=== PATIENT | male | born 1950 | race Caucasian/White ===

== ENCOUNTER 2016-12-28 14:39 | Inpatient (IN) | payer OTHER ==
[2016-12-28] MEDS ORDERED: MORPHINE SULFATE INJ 2 MG IVP PRN (15:08)
[2016-12-28 16:24] LABS: BASOPHILS # (AUTO) 0.2 X10^3/uL (0.0-0.1); BASOPHILS % (AUTO) 2.3 % (0.2-1.0); EOSINOPHILS # (AUTO) 0.1 x10^3/uL (0.0-0.2); EOSINOPHILS % (AUTO) 1.1 % (0.9-2.9); HEMOGLOBIN 14.6 g/dL (13.5-18.0); LYMPHOCYTES # (AUTO) 2.4 X10^3/uL (1.3-2.9); LYMPHOCYTES % (AUTO) 26.4 % (21.0-51.0); MEAN CORPUSCULAR HEMOGLOBIN 35.2 pg (27.0-34.0); MEAN CORPUSCULAR HGB CONC 33.2 g/dL (33.0-35.0); MONOCYTES % (AUTO) 11.5 % (0.0-13.0); NEUTROPHILS # (AUTO) 5.3 x10^3/uL (2.2-4.8); NEUTROPHILS % (AUTO) 58.7 % (42.0-75.0); PLATELET COUNT 305 X10^3/uL (150.0-450.0); RED BLOOD COUNT 4.15 X10^6/uL (4.7-6.0); RED CELL DISTRIBUTION WIDTH 15.4 % (11.6-16.5)
[2016-12-28 17:01] LABS: ALBUMIN 2.9 g/dL (3.4-5.0); CALCIUM 9.5 mg/dL (8.5-10.1); CARBON DIOXIDE 26.9 mmol/L (21-32); COR CA(FOR HYPOALB) 10.4 mg/dL (8.5-10.1); CREATININE 2.46 mg/dL (0.70-1.30); MAGNESIUM 1.4 mg/dL (1.7-2.9); TOTAL PROTEIN 6.7 g/dL (6.4-8.2)
[2016-12-28 17:06] LABS: PLATELET MORPHOLOGY COMMENT NORMAL (NORMAL)
[2016-12-28 17:18] VITALS: BMI 38.0
--- NOTE | 2016-12-28 18:27 | DR.H&P ---
H&P - History & Physical for Day of: H&P Date: 12/28/16 - Chief Complaint Chief Complaint: WEAKNESS, NEAR SYNCOPE, LOW BP, BACK PAIN - Allergies Allergies/Adverse Reactions: Allergies Allergy/AdvReac Type Severity Reaction Status Date / Time Acetaminophen [From Vicodin] Allergy Verified 06/24/15 19:22 Hydrocodone [From Vicodin] Allergy Verified 06/24/15 19:22 Statins Allergy Verified 06/24/15 19:22 - History of Present Illness History of Present Illness: 66 WM DIRECT ADMIT FROM DR CRISTINA OFFICE AFTER PRESENTING WITH CO NEAR SYNCOPE AND HYPOTENSIVE EPISODE EARLIER TODAY WHILE AT WOUND CARE CLINIC. PT REFUSED TO REPORT TO NEAREST [facility]OSP[facility] AT [facility] AT THAT TIME. PT DROVE BY PRIVATE VEHICLE TO THE HOSPITAL. HE FEELS SLIGHT IMPROVEMENT BY STILL WEAK. PT HAS FALL 2 WEEKS AGO WITH LOWER BACK INJURY, LARGE HEMATOMA TO LEFT LOWER BACK. PT HAS MRI SET UP WITH DR LOPEZ IN [place] ON MONDAY. PT IS ON ELIQUIS DUE TO SEVERE PAD. PT HAS HX DM, HTN, CAD, PAD, OA, CRF. PLAN TO ADMIT FOR CARDIAC MONITORING, CT ABD PELVIS EVLAUATE HEMATOMA, L SPINE CT. PAIN CONTROL AND BP MANAGEMENT - Past Medical History Past Medical History: Anemia, Anxiety, Arthritis, Coronary Artery Disease, Diabetes, GERD, Hypertension, Renal Disease Additional Medical History: PAD. ASSISTED COUMADIN THERAPY - Past Surgical History Surgical History: Angioplasty/Stents, CABG/Valve Surgery, Cholecystectomy, Other - Family History Family Medical History: CO, Hypertension - Social History Does patient currently use any type of tobacco product: No Have you used tobacco products in the last 12 months: No Type of Tobacco Use: None Alcohol Use: Occasionally Drug Use: None - Medications Home Medications: Apixaban [Eliquis] 1 tab PO BID 12/28/16 [History Confirmed 12/28/16] Azelastine HCl 1 spray STANISLAW DAILY 12/28/16 [History Confirmed 12/28/16] Cholecalciferol [Vitamin D3] 1 tab PO .2 TIMES WEEK 12/28/16 [History Confirmed 12/28/16] Folic Acid [FOLIC ACID TAB 1 MG *] 1 tab PO DAILY 12/28/16 [History Confirmed ] Levocetirizine Dihydrochloride [Levocetirizine Dihydrochl] 1 tab PO DAILY [History Confirmed 12/28/16] Nystatin (Topical) [Nystatin] 1 dose TD QID 12/28/16 [History Confirmed 12/28/16 ] Tramadol HCl 1 tab PO QID PRN 12/28/16 [History Confirmed 12/28/16] - Review of Systems Constitutional: Weakness Eyes: No Symptoms Reported ENT: No Symptoms Reported Respiratory: No Symptoms Reported Cardiovascular: Light Headedness Gastrointestinal: No Symptoms Reported Genitourinary: No Symptoms Reported Musculoskeletal: Back Pain Skin: Ecchymosis (HEMATOMA TO LOWER BACK, MULTIPLE SCATTERED BRUISES TO FA'S) - Physical Exam Vital Signs: Pulse Rate [Left Radial] 92 Respiratory Rate 15 Blood Pressure [Left Arm] 80/36 Blood Pressure [Right Arm] 146/66 Blood Pressure 120/69 O2 Sat by Pulse Oximetry 90 Oriented: Normal Eyes: Normal Ear: Normal Nose: Normal Throat: Normal Respiratory: RLL Diminished, LLL Diminished Cardiovascular: Irregular : Normal Auscultation: Bowel Sounds: Normal Palpation: Normal Tenderness: Normal Skin: Wound (LEFT UPPER ARM, CLEAN DRY DRESSING INTACT), Bruising, Ecchymosis Musculoskeletal: Back:Lumbar, Pulse Deficit (WEAK LOWER EXTREMITY PULSES BILAT ( HX PAD)) Psychiatric: Anxiety Affect: Anxious Speech Pattern: Clear, Appropriate - Assessment/Plan (1) Near syncope Status: Acute Plan: ADMIT ICU, CARDIAC MONIOTRING, SERIAL CE'S \LABS CBC CMP. CT ABDPELVIS. L SPINE CT, PAIN CONTROL. IV HYDRATION, HYPOTENSIVE TREATMENT WITH IV FLUIDS, CONTINUOUS MONITORING (2) Hypotension Qualifiers: Hypotension type: H Trimester: T Status: Acute Plan: SEE ABOVE (3) Diabetes mellitus, type 2 Qualifiers: Diabetes mellitus complication status: D Diabetes mellitus complication detail: D Diabetic retinopathy severity: D Proliferative retinopathy type: P Diabetes mellitus macular edema: D Diabetes mellitus residential insulin use : D Laterality: L Chronic kidney disease stage: C Status: Chronic (4) GERD (gastroesophageal reflux disease) Qualifiers: Esophagitis presence: E Status: Chronic (5) PAD (peripheral artery disease) Status: Chronic
[2016-12-28] MEDS ORDERED: NS 1000 ML 1,000 ML IV ONE (18:38)
[2016-12-28] MEDS: NS 1000 ML 1,000 ML IV SCH ×2 (20:56→20:57)
[2016-12-28 22:10] LABS: CREATINE KINASE 33 Units/L (39-308); CREATINE KINASE MB < 1.0 ng/mL (0-4.0); TROPONIN I 0.15 ng/mL (0-1.5)
--- NOTE | 2016-12-28 22:52 | RAD ---
HISTORY: Syncope Study: Single view chest Comparison: None Findings: Single portable view is submitted. Sternotomy changes are noted. Lung volumes are reduced. No airspa ce disease, effusion or pneumothorax identified. The cardiac and mediastinal contours are within nor mal limits. The soft tissues are unremarkable. IMPRESSION: 1. Negative portable chest radiograph. Reported By:
[2016-12-29 05:28] LABS: BASOPHILS % (AUTO) 0.4 % (0.2-1.0); EOSINOPHILS # (AUTO) 0.1 x10^3/uL (0.0-0.2); EOSINOPHILS % (AUTO) 1.9 % (0.9-2.9); HEMATOCRIT 41.1 % (42.0-54.0); HEMOGLOBIN 13.6 g/dL (13.5-18.0); LYMPHOCYTES # (AUTO) 1.9 X10^3/uL (1.3-2.9); LYMPHOCYTES % (AUTO) 30.2 % (21.0-51.0); MEAN CORPUSCULAR HEMOGLOBIN 35.4 pg (27.0-34.0); MEAN CORPUSCULAR HGB CONC 33.1 g/dL (33.0-35.0); MEAN CORPUSCULAR VOLUME 106.8 fL (80.0-100.0); MEAN PLATELET VOLUME 9.3 fL (7.4-11.0); MONOCYTES # (AUTO) 0.7 x10^3/uL (0.3-0.8); MONOCYTES % (AUTO) 11.7 % (0.0-13.0); NEUTROPHILS # (AUTO) 3.4 x10^3/uL (2.2-4.8); NEUTROPHILS % (AUTO) 55.8 % (42.0-75.0); PLATELET COUNT 254 X10^3/uL (150.0-450.0); RED BLOOD COUNT 3.85 X10^6/uL (4.7-6.0); RED CELL DISTRIBUTION WIDTH 15.5 % (11.6-16.5); WHITE BLOOD COUNT 6.2 X10^3/uL (3.6-10.0)
[2016-12-29] MEDS: NS 1000 ML 1,000 ML IV SCH ×3 (05:45→14:02)
[2016-12-29 06:04] LABS: PLATELET MORPHOLOGY COMMENT NORMAL (NORMAL)
[2016-12-29 06:16] LABS: ALANINE AMINOTRANSFERASE 38 Units/L (12-78); ALBUMIN 2.7 g/dL (3.4-5.0); ALKALINE PHOSPHATASE 161 Units/L (46-116); ASPARTATE AMINO TRANSFERASE 24 Units/L (15-37); BLOOD UREA NITROGEN 28 mg/dL (7-18); CALCIUM 8.9 mg/dL (8.5-10.1); CARBON DIOXIDE 25.1 mmol/L (21-32); CHLORIDE 109 mmol/L (98-107); CKMB % 2.7 % (<4); COR CA(FOR HYPOALB) 9.9 mg/dL (8.5-10.1); CREATINE KINASE 37 Units/L (39-308); CREATINE KINASE MB < 1.0 ng/mL (0-4.0); CREATININE 1.95 mg/dL (0.70-1.30); GLUCOSE 97 mg/dL (65-99); SODIUM 144 mmol/L (136-145); TOTAL PROTEIN 6.3 g/dL (6.4-8.2); TROPONIN I 0.16 ng/mL (0-1.5); eGFR BLACK RACES 44 (>60); eGFR NON BLACK RACES 37 (>60)
[2016-12-29] MEDS ORDERED: [UNRECOGNIZED DRUG - OTHER] PO PRN (08:49)
[2016-12-29] MEDS ORDERED: PATIENT'S HOME MEDICATION RESPIRATORY (Apixaban [Eliquis] 1 TAB) PO SCH (09:00)
[2016-12-29] MEDS ORDERED: DOXAZOSIN MESYLATE PO SCH (09:00)
[2016-12-29] MEDS: XANAX PO SCH (10:09)
[2016-12-29] MEDS: ZETIA TAB 10 MG PO SCH (10:10)
[2016-12-29] MEDS: PERCOCET TAB 5/325 MG PO PRN ×2 (10:10→23:00)
[2016-12-29] MEDS: ELIQUIS PO SCH ×2 (10:11→22:57)
[2016-12-29] MEDS: FOLIC ACID TAB 1 MG PO SCH (10:11)
--- NOTE | 2016-12-29 10:21 | CT ---
HISTORY: Left flank hematoma Study: CT abdomen pelvis without contrast Comparison: None Technique: Axial non contrast images with coronal and sagittal reformats. Dose reduction procedures were used with MA/kv adjusted for body size. The examination is limited due to the lack of intraveno us and oral contrast. Findings: The right lung base is clear. There is a large area of dense consolidation abutting the posterior pl eura in the superior segment of the left lower lobe. This could represent pneumonia or atelectasis. Underlying neoplasm cannot be excluded and follow up until complete resolution is recommended. It is of note that this was not visible on the recent AP chest x-ray due to its posterior location. Follo w up should be with PA and lateral chest x-ray. CT followup may be required. The liver, spleen, adre nal glands, and pancreas are within normal limits to the limitations of an unenhanced examination. T he patient is status post cholecystectomy. The kidneys are unobstructed and without stones. No urete ral calculi are identified. Calcific atherosclerotic changes present in the abdominal aorta. Aneurys mal dilatation of the distal abdominal aorta demonstrates maximum AP diameter 4.17 centimeters and m aximum transverse diameter 4.56 centimeters. The aneurysm extends over the distal 5.37 centimeters o f the infrarenal abdominal aorta and extends into the left common iliac artery which demonstrates fu siform dilatation having a maximum diameter of 2.87 centimeters. No intraperitoneal or retroperitone al lymphadenopathy is identified. Examination of the pelvis demonstrated no evidence for pelvic mass es, pelvic fluid, or pelvic lymphadenopathy. Compression fractures of L1 and L5 are identified the L 1 fracture is new since March 05, 2016. The L5 fracture has progressed since that time. There is subt le subcutaneous soft tissue stranding in the left flank possibly contusive in origin. No hematoma is identified. IMPRESSION: Subtle subcutaneous soft tissue stranding in the left flank suggestive of contusion in this clinical setting. No hematoma is identified. Fusiform infrarenal abdominal aortic aneurysm extending over a distance of 5.37 centimeters and demo nstrating a maximum diameter of 4. 7 centimeters. Left common iliac artery aneurysm maximum diameter 2.87 centimeters Dense consolidation in the superior segment of the left lower lobe which could represent pneumonia, atelectasis and pneumonia, however underlying neoplasm cannot be excluded and follow up until comple te resolution is recommended. See discussion above with reference to the of follow up. Reported By:
--- NOTE | 2016-12-29 10:30 | CT ---
HISTORY: Injury, fall, low back pain Study: CT lumbar spine without contrast Comparison: Plain films February 24, 2016 Technique: Axial non contrast images with coronal and sagittal reformats. Dose reduction procedures were used with MA/kv adjusted for body size. Findings: the bones are osteopenic. The alignment is normal. There is a compression fracture of L1 new when c ompared with the plain films February 24, 2016. There is a compression fracture of L5 progressive when co mpared with the prior plain films. The remainder the vertebral bodies are of average height. The ped icles, spinous processes, and posterior elements are intact. The visualized SI joints and sacrum are intact. The disc levels are evaluated as follows: T12-L1 level: no evidence for compressive disc disease. The neural foramina are patent. The joints are normal. L1-2 level: No evidence for compressive disc disease. The neural foramina are patent. The joints are normal. L2-3 level: No evidence for compressive disc disease. The neural foramina are patent. Bilateral face t arthropathy is present. L3-4 level: Broad-based disc protrusion effaces the thecal sac and contributes to minimal lateral re cess narrowing bilaterally. Bilateral facet arthropathy is present. L4-5 level: There is a central disc protrusion which effaces the thecal sac. There is also broad-bas ed disc bulging which contributes along with pedicular shortening and bilateral facet arthropathy to lateral recess and foraminal narrowing bilaterally. L5-S1 level: Mild broad-based disc bulging contributes along with facet arthropathy to mild to moder ate lateral recess and foraminal narrowing bilaterally. IMPRESSION: As above Reported By:
[2016-12-29] MEDS ORDERED: SALINE 3% 15 ML NEB TX NEB ONE (13:33)
--- NOTE | 2016-12-29 13:34 | PCM.PROG ---
Progress Note - Progress Note for Day of Date: 12/29/16 - Subjective Subjective: 66 WM ADMITTED ON 12/28/2016 AFTER NEAR SYNCOPE AND HYPOTENSION. PT EKG REVEALED AFIB, RATE CONTROLLED. PT EXPERIENCED A FALL 2 WEEKS AGO WITH NEW ONSET LBP AND HEMATOMA TO LEFT FLANK. CT ABD PELVIS REVEALED SOFT TISSUE INJURY AND LSPINE COMPRESSION FRACTURES. PT HAS BEEN PREVIOUSLY TREATED BY BONE AND JOINT INST. PT CT LUNG BASES REVEALED PNEUMONIA, START PNEUMONIA PROTOCOL TODAY. CONTINUE IV HYDRATION AND PAIN CONTROL, REPEAT AM LABS AND CXR - Past Medical Family Social History Past Med/Fam/Surg Hx: No changes since H&P Allergies: Allergies Acetaminophen [From Vicodin] Allergy (Verified 06/24/15 19:22) Hydrocodone [From Vicodin] Allergy (Verified 06/24/15 19:22) Statins Allergy (Verified 06/24/15:) - Review of Systems ROS: No change since H&P - Vital Signs and I&O's Vital Signs: Temperature 98.5 F Pulse Rate [Left Radial] 74 Respiratory Rate 20 Blood Pressure [Left Arm] 113/93 Blood Pressure [Right Arm] 146/66 Blood Pressure 120/69 O2 Sat by Pulse Oximetry 99 Intake and Output: Intake & Output 12/27/16 12/28/16 12/29/16 12/30/16 11:59 11:59 11:59 11:59 Intake Total 1940 Output Total 200 Balance 1740 - Physical Exam Oriented: Normal Eyes: Normal Ear: Normal Nose: Normal Throat: Normal Respiratory: Diminished (BILATERAL LOWER LUNG DIMINSHED BS) Cardiovascular: Irregular : Normal Auscultation: Bowel Sounds: Normal Tenderness: Normal Skin: Wound (LEFT UPPER ARM, CLEAN DRY DRESSING INTACT), Bruising, Ecchymosis Musculoskeletal: Back:Lumbar, Pulse Deficit (WEAK LOWER EXTREMITY PULSES BILAT ( HX PAD)) Psychiatric: Anxiety Affect: Anxious Speech Pattern: Clear - Laboratory and Diagnostics Result Diagrams: 12/29/16 03:45 12/29/16 03:45 Labs: Laboratory WBC 6.2 X10^3/uL (3.6-10.0) 12/29/16 03:45 RBC 3.85 X10^6/uL (4.7-6.0) L 12/29/16 03:45 Hgb 13.6 g/dL (13.5-18.0) 12/29/16 03:45 Hct 41.1 % (42.0-54.0) L 12/29/16 03:45 MCV 106.8 fL (80.0-100.0) H 12/29/16 03:45 MCH 35.4 pg (27.0-34.0) H 12/29/16 03:45 MCHC 33.1 g/dL (33.0-35.0) 12/29/16 03:45 RDW 15.5 % (11.6-16.5) 12/29/16 03:45 Plt Count 254 X10^3/uL (150.0-450.0) 12/29/16 03:45 Plt Count Comment Adequate (ADEQUATE) 12/29/16 03:45 MPV 9.3 fL (7.4-11.0) 12/29/16 03:45 Neut % 55.8 % (42.0-75.0) 12/29/16 03:45 Lymph % 30.2 % (21.0-51.0) 12/29/16 03:45 [place] % 11.7 % (0.0-13.0) 12/29/16 03:45 Eos % 1.9 % (0.9-2.9) 12/29/16 03:45 Baso % 0.4 % (0.2-1.0) 12/29/16 03:45 Neut # 3.4 x10^3/uL (2.2-4.8) 12/29/16 03:45 Lymph # 1.9 X10^3/uL (1.3-2.9) 12/29/16 03:45 [place] # 0.7 x10^3/uL (0.3-0.8) 12/29/16 03:45 Eos # 0.1 x10^3/uL (0.0-0.2) 12/29/16 03:45 Baso # 0.0 X10^3/uL (0.0-0.1) 12/29/16 03:45 Absolute Nucleated RBC 0.0 /100WBC 12/29/16 03:45 Plt Morphology Comment Normal (NORMAL) 12/29/16 03:45 RBC Morphology Abnormal (NORMAL) 12/29/16 03:45 Macrocytosis 1+ A 12/29/16 03:45 Sodium 144 mmol/L (136-145) 12/29/16 03:45 Corrected Sodium TNP 12/29/16 03:45 Potassium 4.3 mmol/L (3.5-5.1) 12/29/16 03:45 Chloride 109 mmol/L (98-107) H 12/29/16 03:45 Carbon Dioxide 25.1 mmol/L (21-32) 12/29/16 03:45 BUN 28 mg/dL (7-18) H 12/29/16 03:45 Creatinine 1.95 mg/dL (0.70-1.30) H 12/29/16 03:45 Est GFR (MDRD) Af Amer 44 (>60) L 12/29/16 03:45 Est GFR (MDRD) Non-Af 37 (>60) L 12/29/16 03:45 Glucose 97 mg/dL (65-99) 12/29/16 03:45 Calcium 8.9 mg/dL (8.5-10.1) 12/29/16 03:45 Corrected Calcium 9.9 mg/dL (8.5-10.1) 12/29/16 03:45 Magnesium 1.4 mg/dL (1.7-2.9) L 12/28/16 16:05 Total Bilirubin 0.60 mg/dL (0.2-1.0) 12/29/16 03:45 AST 24 Units/L (15-37) 12/29/16 03:45 ALT 38 Units/L (12-78) 12/29/16 03:45 Alkaline Phosphatase 161 Units/L (46-116) H 12/29/16 03:45 Creatine Kinase 37 Units/L (39-308) L 12/29/16 03:45 CK-MB (CK-2) < 1.0 ng/mL (0-4.0) 12/29/16 03:45 CK/CKMB % Calc 2.7 % (<4) 12/29/16 03:45 Troponin I 0.16 ng/mL (0-1.5) 12/29/16 03:45 Total Protein 6.3 g/dL (6.4-8.2) L 12/29/16 03:45 Albumin 2.7 g/dL (3.4-5.0) L 12/29/16 03:45 Globulin 3.6 g/dL (2.5-4.5) 12/29/16 03:45 Albumin/Globulin Ratio 0.8 Ratio (1.1-2.1) L 12/29/16 03:45 - Plan (1) Near syncope Status: Acute Plan: IV HYDRATION, BP MONIOTRING HOLDING LOSARTAN AND HYDRALAZINE. CONTINUE CARDIAC MONITORING. REPEAT AM LABS (2) Hypotension Status: Acute Qualifiers: Hypotension type: H Trimester: T Plan: SEE ABOVE, IMPROVING (3) Diabetes mellitus, type 2 Status: Chronic Qualifiers: Diabetes mellitus complication status: D Diabetes mellitus complication detail: D Diabetic retinopathy severity: D Proliferative retinopathy type: P Diabetes mellitus macular edema: D Diabetes mellitus mcc insulin use : D Laterality: L Chronic kidney disease stage: C Plan: MONITOR, NO PO MEDICATIONS FOR GLUCOSE (4) GERD (gastroesophageal reflux disease) Status: Chronic Qualifiers: Esophagitis presence: E Plan: PPI (5) PAD (peripheral artery disease) Status: Chronic Plan: CONTINUE ELIQUIS (6) Pneumonia Status: Acute Qualifiers: Pneumonia type: P Aspiration pneumonia type: A Laterality: L Lung location: L Plan: PNEUMONIA PROTOCOL, RESP CONSULT. IV ZITHROMAX (7) Lumbar compression fracture Status: Acute Qualifiers: Encounter type: E Fracture type: F Fracture healing: F Plan: PAIN CONTROL, PT (8) Afib Status: Acute Qualifiers: Atrial fibrillation type: A Plan: CARDIAC MONITORING, CONTINUE ELIQUIS. RATE CONTROL
[2016-12-29] MEDS: PROTONIX INJ 40 MG VIAL IVP SCH (14:01)
[2016-12-29] MEDS: NEURONTIN CAP 300 MG PO SCH ×2 (14:02→22:57)
[2016-12-29] MEDS: ZITHROMAX INJ 500 MG VIAL 500 MG in NS 250 ML IV 250 ML IV SCH (14:02)
[2016-12-29 15:43] LABS: BILIRUBIN,URINE NEGATIVE (NEGATIVE); BLOOD/HEMOGLOBIN,URINE NEGATIVE (NEGATIVE); GLUCOSE, URINE NEGATIVE (NEGATIVE); KETONES,URINE NEGATIVE (NEGATIVE); LEUKOCYTE ESTERASE ,URINE NEGATIVE (NEGATIVE); NITRITES,URINE NEGATIVE (NEGATIVE); PROTEIN,URINE NEGATIVE (NEGATIVE); UROBILINOGEN,URINE NORMAL (NORMAL)
[2016-12-29 15:52] LABS: AMORPHOUS SEDIMENT,UR TRACE /HPF (NEGATIVE); APPEARANCE,URINE CLEAR (CLEAR); BACTERIA,URINE TRACE /HPF (NEGATIVE); COLOR,URINE DARK YELLOW (YELLOW); HYALINE CASTS, URINE FEW /LPF (NEGATIVE); RBC,URINE 0-1 /HPF (NEGATIVE); SQUAMOUS EPITHELIAL CELL,UR FEW /HPF (NEGATIVE)
[2016-12-29] MEDS: DUONEB 0.5 MG/3 MG NEB SCH ×2 (16:21→20:35)
[2016-12-30] MEDS: DUONEB 0.5 MG/3 MG NEB SCH ×6 (01:29→22:10)
[2016-12-30 06:19] LABS: BASOPHILS % (AUTO) 0.4 % (0.2-1.0); EOSINOPHILS # (AUTO) 0.1 x10^3/uL (0.0-0.2); EOSINOPHILS % (AUTO) 0.9 % (0.9-2.9); HEMATOCRIT 37.8 % (42.0-54.0); HEMOGLOBIN 12.7 g/dL (13.5-18.0); LYMPHOCYTES # (AUTO) 1.5 X10^3/uL (1.3-2.9); LYMPHOCYTES % (AUTO) 22.8 % (21.0-51.0); MEAN CORPUSCULAR HEMOGLOBIN 35.6 pg (27.0-34.0); MEAN CORPUSCULAR HGB CONC 33.6 g/dL (33.0-35.0); MEAN CORPUSCULAR VOLUME 105.8 fL (80.0-100.0); MEAN PLATELET VOLUME 9.1 fL (7.4-11.0); MONOCYTES # (AUTO) 0.6 x10^3/uL (0.3-0.8); MONOCYTES % (AUTO) 9.2 % (0.0-13.0); NEUTROPHILS # (AUTO) 4.4 x10^3/uL (2.2-4.8); NEUTROPHILS % (AUTO) 66.7 % (42.0-75.0); PLATELET COUNT 228 X10^3/uL (150.0-450.0); RED BLOOD COUNT 3.57 X10^6/uL (4.7-6.0); RED CELL DISTRIBUTION WIDTH 15.1 % (11.6-16.5); WHITE BLOOD COUNT 6.5 X10^3/uL (3.6-10.0)
[2016-12-30] MEDS: NS 1000 ML 1,000 ML IV SCH ×4 (06:42→19:52)
[2016-12-30 06:43] LABS: ALANINE AMINOTRANSFERASE 34 Units/L (12-78); ALBUMIN 2.6 g/dL (3.4-5.0); ALKALINE PHOSPHATASE 162 Units/L (46-116); ASPARTATE AMINO TRANSFERASE 25 Units/L (15-37); BLOOD UREA NITROGEN 21 mg/dL (7-18); CALCIUM 8.6 mg/dL (8.5-10.1); CARBON DIOXIDE 23.1 mmol/L (21-32); CHLORIDE 111 mmol/L (98-107); COR CA(FOR HYPOALB) 9.7 mg/dL (8.5-10.1); CREATININE 1.43 mg/dL (0.70-1.30); GLUCOSE 107 mg/dL (65-99); SODIUM 145 mmol/L (136-145); TOTAL PROTEIN 6.1 g/dL (6.4-8.2); eGFR BLACK RACES > 60 (>60); eGFR NON BLACK RACES 52 (>60)
[2016-12-30] MEDS: NEURONTIN CAP 300 MG PO SCH ×4 (07:10→21:08)
[2016-12-30 07:28] LABS: PLATELET MORPHOLOGY COMMENT NORMAL (NORMAL)
[2016-12-30] MEDS ORDERED: TOBRAMYCIN SULFATE 80 MG in NS 100 ML IV 100 ML IV ONE (09:00)
[2016-12-30] MEDS: ZITHROMAX INJ 500 MG VIAL 500 MG in NS 250 ML IV 250 ML IV SCH (09:48)
[2016-12-30] MEDS: PROTONIX INJ 40 MG VIAL IVP SCH (09:51)
[2016-12-30] MEDS: MILK OF MAGNESIA PO SCH ×2 (09:52→21:09)
[2016-12-30] MEDS: CARDURA PO SCH (09:52)
[2016-12-30] MEDS: XANAX PO SCH (09:53)
[2016-12-30] MEDS: PLAVIX PO SCH (09:53)
[2016-12-30] MEDS: ELIQUIS PO SCH ×2 (09:53→21:09)
[2016-12-30] MEDS: FOLIC ACID TAB 1 MG PO SCH (09:54)
[2016-12-30] MEDS: ZETIA TAB 10 MG PO SCH (09:54)
[2016-12-30] MEDS: ZYLOPRIM PO SCH (10:41)
[2016-12-30] MEDS ORDERED: MAXIPIME 1 GM IV PREMIX 1 GM/50 ML BAG IV SCH (14:00)
[2016-12-30] MEDS: MAXIPIME IV SCH ×2 (14:33→21:10)
[2016-12-30] MEDS: NS IV SCH ×2 (14:33→21:10)
[2016-12-30] MEDS: SPIKE MINIBAG IV SCH ×2 (14:33→21:10)
[2016-12-30] MEDS ORDERED: NEXTERONE IV 360 MG PREMIX* 200 ML IV PRN ×2 (15:28→15:29)
[2016-12-30] MEDS ORDERED: NEXTERONE IV 150 MG PREMIX* 100 ML IV ONE ×2 (15:28→17:00)
[2016-12-30] MEDS ORDERED: HEPARIN SODIUM INJ 5000 UNITS ONE (16:18)
[2016-12-30] MEDS: COLACE CAP 100 MG PO SCH ×2 (21:08)
[2016-12-30] MEDS: PERCOCET TAB 5/325 MG PO PRN (21:09)
[2016-12-30] MEDS: NEXTERONE IV 360 MG PREMIX* 200 ML IV PRN (23:24)
[2016-12-31] MEDS: DUONEB 0.5 MG/3 MG NEB SCH ×6 (01:22→20:49)
[2016-12-31] MEDS: NS 1000 ML 1,000 ML IV SCH ×3 (05:50→22:11)
[2016-12-31] MEDS: SPIKE MINIBAG IV SCH ×3 (05:51→22:00)
[2016-12-31] MEDS: MAXIPIME IV SCH ×3 (05:51→22:00)
[2016-12-31] MEDS: NS IV SCH ×3 (05:51→22:00)
[2016-12-31] MEDS: NEURONTIN CAP 300 MG PO SCH ×3 (05:51→21:58)
[2016-12-31] MEDS: ZETIA TAB 10 MG PO SCH (08:52)
[2016-12-31] MEDS: PROTONIX INJ 40 MG VIAL IVP SCH (08:52)
[2016-12-31] MEDS: ZITHROMAX INJ 500 MG VIAL 500 MG in NS 250 ML IV 250 ML IV SCH (08:52)
[2016-12-31] MEDS: CARDURA PO SCH (08:53)
[2016-12-31] MEDS: XANAX PO SCH (08:53)
[2016-12-31] MEDS: ZYLOPRIM PO SCH (08:53)
[2016-12-31] MEDS: FOLIC ACID TAB 1 MG PO SCH (08:53)
[2016-12-31] MEDS: ELIQUIS PO SCH ×2 (08:53→21:58)
[2016-12-31] MEDS ORDERED: PATIENT'S HOME MEDICATION RESPIRATORY (Oxycodone W/ Acetaminophen [Oxycodone/Acetaminophen PO PRN (08:55)
[2016-12-31] MEDS ORDERED: ULTRAM PO PRN (08:55)
[2016-12-31] MEDS: PLAVIX PO SCH (08:56)
[2016-12-31] MEDS: MILK OF MAGNESIA PO SCH ×2 (08:56→22:10)
[2016-12-31] MEDS ORDERED: PLAVIX PO SCH (09:00)
[2016-12-31] MEDS ORDERED: [UNRECOGNIZED DRUG - OTHER] PO SCH (09:00)
[2016-12-31] MEDS ORDERED: ZYLOPRIM PO SCH (09:00)
[2016-12-31] MEDS ORDERED: [UNRECOGNIZED DRUG - OTHER] NAS SCH (09:00)
[2016-12-31] MEDS ORDERED: VITAMIN D (1.25MG) PO SCH (10:15)
[2016-12-31] MEDS: NEXTERONE IV 360 MG PREMIX* 200 ML IV PRN (11:00)
[2016-12-31] MEDS ORDERED: ASTELIN NASAL SPRAY ENOSTRIL ONE (12:27)
[2016-12-31] MEDS: ASTELIN NASAL SPRAY ENOSTRIL SCH (12:30)
[2016-12-31] MEDS ORDERED: VERSED ONE ×3 (13:38→13:56)
[2016-12-31] MEDS ORDERED: VERSED IVP ONE ×4 (13:46→13:59)
[2016-12-31] MEDS ORDERED: PHENERGAN INJ 25 MG ONE (13:52)
[2016-12-31] MEDS ORDERED: PHENERGAN INJ 25 MG IVP ONE (13:56)
[2016-12-31] MEDS ORDERED: COLCRYS TAB 0.6 MG PO ONE (17:36)
[2016-12-31] MEDS: PERCOCET TAB 5/325 MG PO PRN (21:58)
[2016-12-31] MEDS: COLACE CAP 100 MG PO SCH (22:11)
[2017-01-01] MEDS ORDERED: COLCRYS TAB 0.6 MG PO PRN (00:01)
[2017-01-01] MEDS: DUONEB 0.5 MG/3 MG NEB SCH ×4 (00:53→12:18)
--- NOTE | 2017-01-01 05:19 | RAD ---
Chest AP portable Indication: Syncope weakness. Comparison: December 28, 2016. Findings: There is cardiomegaly. No pneumothorax or effusion seen. No consolidation seen. No severe edema identified. Sternotomy change noted. Impression: Cardiomegaly, similar to the prior. No new acute abnormality otherwise. Reported By:
[2017-01-01] MEDS: NEURONTIN CAP 300 MG PO SCH ×3 (05:20→22:44)
[2017-01-01] MEDS: NS 1000 ML 1,000 ML IV SCH ×4 (05:20→22:45)
[2017-01-01] MEDS: NS IV SCH ×3 (05:20→21:45)
[2017-01-01] MEDS: SPIKE MINIBAG IV SCH ×3 (05:20→21:45)
[2017-01-01] MEDS: MAXIPIME IV SCH ×3 (05:20→21:45)
[2017-01-01 05:41] LABS: BASOPHILS % (AUTO) 0.6 % (0.2-1.0); EOSINOPHILS # (AUTO) 0.2 x10^3/uL (0.0-0.2); EOSINOPHILS % (AUTO) 3.1 % (0.9-2.9); HEMATOCRIT 35.3 % (42.0-54.0); HEMOGLOBIN 11.9 g/dL (13.5-18.0); LYMPHOCYTES # (AUTO) 1.2 X10^3/uL (1.3-2.9); LYMPHOCYTES % (AUTO) 18.9 % (21.0-51.0); MEAN CORPUSCULAR HEMOGLOBIN 35.7 pg (27.0-34.0); MEAN CORPUSCULAR HGB CONC 33.6 g/dL (33.0-35.0); MEAN PLATELET VOLUME 9.3 fL (7.4-11.0); MONOCYTES # (AUTO) 0.8 x10^3/uL (0.3-0.8); MONOCYTES % (AUTO) 12.5 % (0.0-13.0); NEUTROPHILS # (AUTO) 4.1 x10^3/uL (2.2-4.8); NEUTROPHILS % (AUTO) 64.9 % (42.0-75.0); PLATELET COUNT 226 X10^3/uL (150.0-450.0); RED BLOOD COUNT 3.33 X10^6/uL (4.7-6.0); RED CELL DISTRIBUTION WIDTH 15.4 % (11.6-16.5); WHITE BLOOD COUNT 6.3 X10^3/uL (3.6-10.0)
[2017-01-01 06:16] LABS: ALANINE AMINOTRANSFERASE 27 Units/L (12-78); ALBUMIN 2.5 g/dL (3.4-5.0); ALKALINE PHOSPHATASE 145 Units/L (46-116); ASPARTATE AMINO TRANSFERASE 17 Units/L (15-37); BLOOD UREA NITROGEN 14 mg/dL (7-18); CALCIUM 8.5 mg/dL (8.5-10.1); CARBON DIOXIDE 25.8 mmol/L (21-32); CHLORIDE 110 mmol/L (98-107); COR CA(FOR HYPOALB) 9.7 mg/dL (8.5-10.1); CREATININE 1.31 mg/dL (0.70-1.30); GLUCOSE 90 mg/dL (65-99); SODIUM 145 mmol/L (136-145); TOTAL PROTEIN 5.8 g/dL (6.4-8.2); eGFR BLACK RACES > 60 (>60); eGFR NON BLACK RACES 58 (>60)
[2017-01-01 06:33] LABS: PLATELET MORPHOLOGY COMMENT NORMAL (NORMAL)
[2017-01-01] MEDS: ASTELIN NASAL SPRAY ENOSTRIL SCH (09:04)
[2017-01-01] MEDS: CARDURA PO SCH (09:05)
[2017-01-01] MEDS: PROTONIX INJ 40 MG VIAL IVP SCH (09:05)
[2017-01-01] MEDS: PLAVIX PO SCH (09:06)
[2017-01-01] MEDS: ELIQUIS PO SCH ×2 (09:06→21:45)
[2017-01-01] MEDS: FOLIC ACID TAB 1 MG PO SCH (09:06)
[2017-01-01] MEDS: ZYLOPRIM PO SCH (09:06)
[2017-01-01] MEDS: MILK OF MAGNESIA PO SCH ×2 (09:07→22:46)
[2017-01-01] MEDS: XANAX PO SCH (09:07)
[2017-01-01] MEDS: ZETIA TAB 10 MG PO SCH (09:07)
[2017-01-01] MEDS ORDERED: CORDARONE TAB 200 MG PO ONE (15:00)
[2017-01-01] MEDS ORDERED: DUONEB 0.5 MG/3 MG NEB PRN (15:20)
[2017-01-01] MEDS: COLACE CAP 100 MG PO SCH (22:46)
[2017-01-02 05:31] LABS: BASOPHILS % (AUTO) 0.5 % (0.2-1.0); EOSINOPHILS # (AUTO) 0.3 x10^3/uL (0.0-0.2); EOSINOPHILS % (AUTO) 4.6 % (0.9-2.9); HEMOGLOBIN 12.1 g/dL (13.5-18.0); LYMPHOCYTES # (AUTO) 1.4 X10^3/uL (1.3-2.9); LYMPHOCYTES % (AUTO) 22.9 % (21.0-51.0); MEAN CORPUSCULAR HEMOGLOBIN 35.4 pg (27.0-34.0); MEAN CORPUSCULAR HGB CONC 33.5 g/dL (33.0-35.0); MEAN CORPUSCULAR VOLUME 105.6 fL (80.0-100.0); MONOCYTES # (AUTO) 0.7 x10^3/uL (0.3-0.8); MONOCYTES % (AUTO) 12.5 % (0.0-13.0); NEUTROPHILS # (AUTO) 3.5 x10^3/uL (2.2-4.8); NEUTROPHILS % (AUTO) 59.5 % (42.0-75.0); PLATELET COUNT 210 X10^3/uL (150.0-450.0); RED BLOOD COUNT 3.41 X10^6/uL (4.7-6.0); RED CELL DISTRIBUTION WIDTH 15.1 % (11.6-16.5); WHITE BLOOD COUNT 5.9 X10^3/uL (3.6-10.0)
[2017-01-02 05:36] LABS: ALANINE AMINOTRANSFERASE 27 Units/L (12-78); ALBUMIN 2.5 g/dL (3.4-5.0); ALKALINE PHOSPHATASE 151 Units/L (46-116); ASPARTATE AMINO TRANSFERASE 17 Units/L (15-37); BLOOD UREA NITROGEN 12 mg/dL (7-18); CALCIUM 8.7 mg/dL (8.5-10.1); CARBON DIOXIDE 26.3 mmol/L (21-32); CHLORIDE 110 mmol/L (98-107); COR CA(FOR HYPOALB) 9.9 mg/dL (8.5-10.1); CREATININE 1.12 mg/dL (0.70-1.30); GLUCOSE 87 mg/dL (65-99); SODIUM 143 mmol/L (136-145); eGFR BLACK RACES > 60 (>60); eGFR NON BLACK RACES > 60 (>60)
[2017-01-02 06:47] LABS: PLATELET MORPHOLOGY COMMENT NORMAL (NORMAL)
[2017-01-02] MEDS: SPIKE MINIBAG IV SCH ×2 (07:06→15:03)
[2017-01-02] MEDS: NS 1000 ML 1,000 ML IV SCH (07:06)
[2017-01-02] MEDS: MAXIPIME IV SCH ×2 (07:06→15:03)
[2017-01-02] MEDS: NEURONTIN CAP 300 MG PO SCH ×2 (07:06→15:03)
[2017-01-02] MEDS: NS IV SCH ×2 (07:06→15:03)
[2017-01-02] MEDS ORDERED: CORDARONE TAB 200 MG PO SCH (09:00)
[2017-01-02] MEDS: ASTELIN NASAL SPRAY ENOSTRIL SCH ×2 (09:14→09:18)
[2017-01-02] MEDS: ELIQUIS PO SCH (09:15)
[2017-01-02] MEDS: CARDURA PO SCH (09:15)
[2017-01-02] MEDS: FOLIC ACID TAB 1 MG PO SCH (09:16)
[2017-01-02] MEDS: MILK OF MAGNESIA PO SCH (09:17)
[2017-01-02] MEDS: ZYLOPRIM PO SCH (09:17)
[2017-01-02] MEDS: XANAX PO SCH (09:17)
[2017-01-02] MEDS: PROTONIX INJ 40 MG VIAL IVP SCH (09:18)
[2017-01-02] MEDS: ZETIA TAB 10 MG PO SCH (09:19)
[2017-01-02] MEDS: PLAVIX PO SCH (09:21)
[2017-01-02 15:07] VITALS: BP 150/46
== END 2017-01-02 14:45 | disposition home or self-care (01) | DRG 309 ==
LOC: ICU 14:39 → OBSVTOIN 12-29 15:00
PROVIDERS: ADMIT Internal Medicine; ATTEND Internal Medicine
DX: I48.92 Unspecified atrial flutter (principal); E86.1 Hypovolemia; R55 Syncope and collapse; I95.89 Other hypotension; R94.31 Abnormal electrocardiogram [ECG] [EKG]; R53.1 Weakness; M54.89 Other dorsalgia; M54.5 Low back pain; E11.65 Type 2 diabetes mellitus with hyperglycemia; I10 Essential (primary) hypertension; K21.9 Gastro-esophageal reflux disease without esophagitis; I25.10 Atherosclerotic heart disease of native coronary artery without angina pectoris; I73.89 Other specified peripheral vascular diseases; W18.39XA Other fall on same level, initial encounter; I48.91 Unspecified atrial fibrillation; Y92.89 Other specified places as the place of occurrence of the external cause; M48.56XA Collapsed vertebra, not elsewhere classified, lumbar region, initial encounter for fracture; Z79.01 Long term (current) use of anticoagulants; S30.0XXA Contusion of lower back and pelvis, initial encounter
CPT/HCPCS: 36415; 71010; 72131; 74176; 80053; 81001; 82270; 82550; 82553; 83735; 84484; 85025; 87040; 87070; 87205; 93005; 93010; 94640; 99231; A4222; C9113; G0378; J0456; J0692; J1644; J2250; J2550; J3260; J7620

== ENCOUNTER 2017-10-31 15:37 | Inpatient (IN) | payer OTHER ==
[~2017-10-31 15:37] MED LIST: DIPRIVAN VIAL ONE; VERSED ONE
[2017-10-31] MEDS ORDERED: LR 1000 ML IV 1,000 ML IV ONE (16:43)
[2017-10-31 16:44] LABS: BASOPHILS # (AUTO) 0.2 X10^3/uL (0.0-0.1); EOSINOPHILS # (AUTO) 0.1 x10^3/uL (0.0-0.2); EOSINOPHILS % (AUTO) 1.1 % (0.9-2.9); HEMATOCRIT 43.5 % (42.0-54.0); HEMOGLOBIN 15.3 g/dL (13.5-18.0); LYMPHOCYTES # (AUTO) 1.1 X10^3/uL (1.3-2.9); LYMPHOCYTES % (AUTO) 11.2 % (21.0-51.0); MEAN CORPUSCULAR HEMOGLOBIN 37.1 pg (27.0-34.0); MEAN CORPUSCULAR HGB CONC 35.1 g/dL (33.0-35.0); MEAN CORPUSCULAR VOLUME 105.5 fL (80.0-100.0); MONOCYTES # (AUTO) 0.7 x10^3/uL (0.3-0.8); MONOCYTES % (AUTO) 6.8 % (0.0-13.0); NEUTROPHILS % (AUTO) 78.9 % (42.0-75.0); PLATELET COUNT 289 X10^3/uL (150.0-450.0); RED BLOOD COUNT 4.12 X10^6/uL (4.7-6.0); RED CELL DISTRIBUTION WIDTH 15.1 % (11.6-16.5); WHITE BLOOD COUNT 10.1 X10^3/uL (3.6-10.0)
[2017-10-31 17:00] LABS: CALCIUM 8.8 mg/dL (8.5-10.1); CARBON DIOXIDE 30.4 mmol/L (21-32); COR CA(FOR HYPOALB) 9.6 mg/dL (8.5-10.1); CREATININE 2.01 mg/dL (0.70-1.30); TOTAL PROTEIN 7.7 g/dL (6.4-8.2)
[2017-10-31] MEDS: NS 1000 ML 1,000 ML IV SCH (17:06)
[2017-10-31 17:12] LABS: PLATELET MORPHOLOGY COMMENT NORMAL (NORMAL)
[2017-10-31 17:27] VITALS: BMI 39.4
[2017-10-31] MEDS: MORPHINE SULFATE INJ 2 MG INJ IVP PRN (17:30)
[2017-10-31] MEDS: FENTANYL INJ 100 mcg ONE ×2 (17:30→17:36)
[2017-10-31] MEDS: MARCAINE 0.25% INJ ONE ×2 (17:35→17:42)
[2017-10-31] MEDS: XYLOCAINE 1% and EPINEPHRINE 1:100,000 ONE ×2 (17:36→17:42)
--- NOTE | 2017-10-31 17:40 | RAD ---
HISTORY: Preop perirectal abscess Study: Chest AP portable Comparison: 01/01/2017 Findings: The heart is enlarged. No congestive heart failure is noted. The buck are normal. The lung carrero are clear. No pleural effusions are identified. The bony thorax is unremarkable. The patient is status p ost median sternotomy. IMPRESSION: Cardiomegaly without congestive heart failure 2. Lungs clear Reported By:
[2017-10-31] MEDS ORDERED: NS IRRIGATION 1000 ML 1,000 ML IR ONE (17:54)
[2017-10-31] MEDS ORDERED: ZOFRAN INJ 4 MG VIAL IVP PRN (18:06)
--- NOTE | 2017-10-31 18:16 | OR.GENERIC ---
Post-Op Note Generic - Post-Op Note Operative Report: Date of Operation: October 31, 2017 Pre-Operative Diagnosis: Recurrent perianal abscess. Post-Operative Diagnosis: Recurrent perianal abscess. Procedure: Exam under anesthesia with incision and drainage of perianal abscess. Surgeon: Josef Juarez MD Anesthesia: Monitored anesthesia care and local. Specimen: Wound culture. Estimated blood loss: Minimal Complications: None Summary: The patient is a 67 year old male who presented with a recurrent perianal abscess. The patient presented with acute pain. Mr. Angulo is on anticoagulation and antiplatelet therapy. The patient was offered incision and drainage. The risk and benefits of the procedure including difficulty with anesthesia, bleeding, infection, scar formation, delayed healing, as well as recurrence were discussed with the patient. The patient understood these risks and requested the procedure. On October 31, 2017, the patient was brought to the operative theatre. A time out was performed verifying the patient and the procedure. After satisfactory induction of monitored anesthesia care, perianal region was prepped with betadine and draped in the usual fashion. Local anesthetic was infiltrated around the area of induration which was anterior to the anus. A small core of skin was removed sharply. The abscess cavity was entered bluntly. Purulent drainage was noted. A culture was obtained and sent to microbiology. All loculations were disrupted bluntly. The cavity was noted to track to the anus subcutaneously and a small tract was noted to extend lateral to the sphincter muscles. The abscess cavity extended greater than 6 cm. Due to anticoagulation , the decision was made not to further explore the tract at this time. The abscess cavity was copiously irrigated. Bleeding was controlled using electrocautery. Next, the wound was packed with 2 Iodoform. A sterile dressing was placed. The patient was awakened and taken to the recovery room in stable condition. There were no complications. All counts were correct. The patient will be monitored in the hospital for bleeding and pain control.
[2017-10-31] MEDS ORDERED: NS 500 ML IV 500 ML IV ONE (18:24)
[2017-10-31] MEDS ORDERED: ZOSYN IV SCH (19:00)
[2017-10-31] MEDS ORDERED: SPIKE MINIBAG IV SCH (19:00)
[2017-10-31] MEDS ORDERED: NS IV SCH (19:00)
[2017-10-31] MEDS ORDERED: ZOSYN VIAL 3.375 GM 3.375 GM in NS 100 ML IV + SPIKE MINIBAG* 100 ML IV SCH (19:00)
[2017-10-31] MEDS: ZOSYN VIAL 2.25 GM 2.25 GM in NS 100 ML IV + SPIKE MINIBAG* 100 ML IV SCH (19:51)
[2017-10-31] MEDS: PERCOCET TAB 5/325 MG PO PRN (19:57)
[2017-11-01] MEDS: ZOSYN VIAL 2.25 GM 2.25 GM in NS 100 ML IV + SPIKE MINIBAG* 100 ML IV SCH ×2 (03:28→12:39)
[2017-11-01] MEDS: NS 1000 ML 1,000 ML IV SCH ×2 (03:35→06:40)
[2017-11-01 06:12] LABS: BASOPHILS % (AUTO) 0.7 % (0.2-1.0); EOSINOPHILS # (AUTO) 0.2 x10^3/uL (0.0-0.2); EOSINOPHILS % (AUTO) 2.5 % (0.9-2.9); HEMATOCRIT 40.6 % (42.0-54.0); LYMPHOCYTES # (AUTO) 1.6 X10^3/uL (1.3-2.9); LYMPHOCYTES % (AUTO) 24.9 % (21.0-51.0); MEAN CORPUSCULAR HEMOGLOBIN 36.5 pg (27.0-34.0); MEAN CORPUSCULAR HGB CONC 34.6 g/dL (33.0-35.0); MEAN CORPUSCULAR VOLUME 105.6 fL (80.0-100.0); MEAN PLATELET VOLUME 8.4 fL (7.4-11.0); MONOCYTES # (AUTO) 0.8 x10^3/uL (0.3-0.8); MONOCYTES % (AUTO) 11.9 % (0.0-13.0); NEUTROPHILS # (AUTO) 3.8 x10^3/uL (2.2-4.8); PLATELET COUNT 289 X10^3/uL (150.0-450.0); RED BLOOD COUNT 3.85 X10^6/uL (4.7-6.0); RED CELL DISTRIBUTION WIDTH 15.2 % (11.6-16.5); WHITE BLOOD COUNT 6.4 X10^3/uL (3.6-10.0)
[2017-11-01 06:37] LABS: PLATELET MORPHOLOGY COMMENT NORMAL (NORMAL)
[2017-11-01 07:26] LABS: ALANINE AMINOTRANSFERASE 16 Units/L (12-78); ALBUMIN 2.6 g/dL (3.4-5.0); ALKALINE PHOSPHATASE 132 Units/L (46-116); ASPARTATE AMINO TRANSFERASE 12 Units/L (15-37); BLOOD UREA NITROGEN 36 mg/dL (7-18); CALCIUM 8.4 mg/dL (8.5-10.1); CARBON DIOXIDE 30.1 mmol/L (21-32); COR CA(FOR HYPOALB) 9.5 mg/dL (8.5-10.1); CREATININE 1.81 mg/dL (0.70-1.30); eGFR BLACK RACES 48 (>60); eGFR NON BLACK RACES 40 (>60)
[2017-11-01 07:29] LABS: BILIRUBIN,URINE NEGATIVE (NEGATIVE); BLOOD/HEMOGLOBIN,URINE NEGATIVE (NEGATIVE); GLUCOSE, URINE NEGATIVE (NEGATIVE); KETONES,URINE NEGATIVE (NEGATIVE); LEUKOCYTE ESTERASE ,URINE NEGATIVE (NEGATIVE); NITRITES,URINE NEGATIVE (NEGATIVE); PROTEIN,URINE 1+ (NEGATIVE); UROBILINOGEN,URINE NORMAL (NORMAL)
[2017-11-01 07:30] LABS: CHLORIDE 103 mmol/L (98-107); SODIUM 140 mmol/L (136-145)
[2017-11-01 07:39] LABS: AMORPHOUS SEDIMENT,UR 2+ /HPF (NEGATIVE); APPEARANCE,URINE CLEAR (CLEAR); BACTERIA,URINE NEGATIVE /HPF (NEGATIVE); COLOR,URINE YELLOW (YELLOW); MUCUS,URINE FEW /HPF (NEGATIVE); RBC,URINE NONE SEEN /HPF (NONE SEEN); SQUAMOUS EPITHELIAL CELL,UR RARE /HPF (NEGATIVE)
[2017-11-01] MEDS: MORPHINE SULFATE INJ 2 MG INJ IVP PRN (09:11)
[2017-11-01] MEDS: PERCOCET TAB 5/325 MG PO PRN (10:06)
[2017-11-01] MEDS ORDERED: ELIQUIS PO SCH (11:30)
[2017-11-01] MEDS ORDERED: VITAMIN D (1.25MG) PO SCH (11:45)
[2017-11-01] MEDS ORDERED: HYZAAR 50/12.5 MG PO SCH (12:00)
[2017-11-01] MEDS ORDERED: CARDURA PO SCH (12:00)
[2017-11-01] MEDS ORDERED: FOLIC ACID TAB 1 MG PO SCH (12:00)
[2017-11-01] MEDS ORDERED: CARDIZEM CD 240 MG PO SCH (12:00)
[2017-11-01] MEDS ORDERED: PRAVACHOL PO SCH (12:00)
[2017-11-01] MEDS ORDERED: PLAVIX PO SCH (12:00)
[2017-11-01] MEDS ORDERED: ZYLOPRIM PO SCH (12:00)
[2017-11-01] MEDS ORDERED: ZETIA TAB 10 MG PO SCH (12:00)
[2017-11-01] MEDS: NEURONTIN CAP 300 MG PO SCH ×2 (12:38→14:24)
[2017-11-01 12:46] VITALS: BP 173/57
== END 2017-11-01 14:55 | disposition home or self-care (01) | DRG 395 ==
LOC: MED/SURG 15:37
PROVIDERS: ADMIT Internal Medicine; ATTEND Internal Medicine
PROC: 0D9QXZZ Drainage of Anus, External Approach (ICD-10-PCS; principal; 2017-10-31 19:30)
DX: K61.0 Anal abscess (principal); Z79.01 Long term (current) use of anticoagulants; K62.89 Other specified diseases of anus and rectum
CPT/HCPCS: 36415; 71045; 80053; 81001; 85025; 87070; 87075; 87205; 93005; 93010; A4222; S0020; J2001; J2250; J2270; J2543; J3010; J3490; J7120